=== PATIENT | female | born 1955 | race Caucasian/White ===

== ENCOUNTER 2019-02-10 13:22 | Emergency (ER) | payer SELFPAY ==
[2019-02-10] MEDS ORDERED: BABY ASPIRIN 81 MG CHEW PO ONE (13:31)
--- NOTE | 2019-02-10 13:31 | ERPHSYRPT ---
- History of Present Illness Time Seen by Provider: 02/10/19 13:30 Historian: patient, family Exam Limitations: no limitations Physician History: 63 y/o white female presents with 3 to 4 days of intermittent substernal cp. described as transverse pressure with radiation to left arm a few times. pt took one baby asa this am. she has no known cardiac problems. pt has no cp at this time. pt denies n/v/d. denies abd pain, denies soa. Timing/Duration: day(s) ( 3 to 4 days) Quality: pressure Location: substernal Chest Pain Radiation: arm (left) Severity of Pain-Max: mild Severity of Pain-Current: none Modifying Factors: Improves With: nothing Associated Symptoms: denies symptoms Prior Chest Pain/Cardiac Workup: no prior chest pain, no prior cardiac workup Aspirin Treatment Today: 81 mg x 1 Allergies/Adverse Reactions: No Known Drug Allergies Allergy (Unverified 02/10/19 13:55) Home Medications: No Reportable Medications [No Reported Medications] 02/10/19 [History] - Review of Systems Constitutional: No Symptoms Eyes: No Symptoms Ears, Nose, & Throat: No Symptoms Respiratory: No Symptoms Cardiac: Chest Pain Abdominal/Gastrointestinal: No Symptoms Genitourinary Symptoms: No Symptoms Musculoskeletal: No Symptoms Skin: No Symptoms Neurological: No Symptoms Psychological: No Symptoms Endocrine: No Symptoms Hematologic/Lymphatic: No Symptoms Immunological/Allergic: No Symptoms All Other Systems: Reviewed and Negative - Past Medical History Neurological History: No Pertinent History ENT History: No Pertinent History Cardiac History: No Pertinent History Respiratory History: No Pertinent History Endocrine Medical History: No Pertinent History Musculoskeletal History: No Pertinent History GI Medical History: No Pertinent History History: No Pertinent History Psycho-Social History: No Pertinent History Female Reproductive Disorders: No Pertinent History - Past Surgical History Neuro Surgical History: No Pertinent History Cardiac: No Pertinent History Respiratory: No Pertinent History Gastrointestinal: No Pertinent History Genitourinary: No Pertinent History Musculoskeletal: No Pertinent History Female Surgical History: No Pertinent History - Nursing Vital Signs Nursing Vital Signs: Initial Vital Signs Temperature 97.7 F 02/10/19 13:23 Pulse Rate 70 02/10/19 13:23 Respiratory Rate 17 02/10/19 13:23 Blood Pressure 124/79 02/10/19 13:23 O2 Sat by Pulse Oximetry 96 02/10/19 13:23 Pain Scale Pain Intensity 0 - Physical Exam General Appearance: no apparent distress, alert, anxiety Eye Exam: PERRL/EOMI Ears, Nose, Throat Exam: normal ENT inspection, moist mucous membranes Neck Exam: normal inspection, non-tender, supple, full range of motion Respiratory Exam: normal breath sounds, lungs clear, airway intact, No chest tenderness (none now), No respiratory distress Cardiovascular Exam: regular rate/rhythm, normal heart sounds, normal peripheral pulses Gastrointestinal/Abdomen Exam: soft, normal bowel sounds, No tenderness Pelvic Exam: not done Back Exam: normal inspection, normal range of motion, No CVA tenderness, No vertebral tenderness Extremity Exam: normal inspection, normal range of motion, pelvis stable Neurologic Exam: alert, oriented x 3, cooperative, professor sculpture II-XII nml as tested Skin Exam: normal color, warm, dry Lymphatic Exam: No adenopathy SpO2 Interpretation: normal O2 Delivery: Room Air - Course Nursing assessment & vital signs reviewed: Yes EKG Interpreted by Me: RATE (65), Sinus Rhythm, NORMAL AXIS, Non-specific ST Changes, Other (no comparison ekg) Ordered Tests: Active Orders 24 hr Category Date Time Status Cook Fishing Vessel STAT Care 02/10/19 13:31 Active EKG-ER Only STAT Care 02/10/19 13:31 Active IV Insertion STAT Care 02/10/19 13:31 Active Pulse Oximetry (ED) STAT Care 02/10/19 13:31 Active CHEST 1 VIEW (PORTABLE) Stat Exams 02/10/19 13:31 Completed CHEST WITH CONTRAST [CT] Stat Exams 02/10/19 14:41 Completed CBC W DIFF Stat Lab 02/10/19 13:31 Completed CMP Stat Lab 02/10/19 13:55 Completed D-DIMER QUANTITATION Stat Lab 02/10/19 13:55 Completed NT PRO BNP Stat Lab 02/10/19 13:55 Completed PROTIME WITH INR Stat Lab 02/10/19 13:55 Completed TROPONIN Q3H Lab 02/10/19 13:55 Completed TROPONIN Q3H Lab 02/10/19 16:45 Ordered TROPONIN Q3H Lab 02/10/19 19:45 Ordered TROPONIN Q3H Lab 02/10/19 22:45 Ordered TROPONIN Q3H Lab 02/11/19 01:45 Ordered Medication Summary Discontinued Medications Generic Name Dose Route Start Last Admin Trade Name Freq PRN Reason Stop Dose Admin Aspirin 324 mg 02/10/19 13:31 02/10/19 14:18 Baby Aspirin 81 Mg Chew PO 02/10/19 13:32 324 mg STAT ONE Administration Lab/Rad Data: Laboratory Result Diagrams 02/10/19 13:31 02/10/19 13:55 Laboratory Results 02/10/19 02/10/19 02/10/19 Range/Units 13:55 13:55 13:55 WBC (4.0-10.5) K/mm3 RBC (4.1-5.4) M/mm3 Hgb (12.0-16.0) gm/dl Hct (35-47) % MCV (78-100) fl MCH (26-32) pg MCHC (32-36) g/dl RDW (11.5-14.0) % Plt Count (150-450) K/mm3 MPV (6-9.5) fl Gran % (36.0-66.0) % Eos # (Auto) (0-0.5) Absolute Lymphs (auto) (1.0-4.6) Absolute Monos (auto) (0.0-1.3) Lymphocytes % (24.0-44.0) % Monocytes % (0.0-12.0) % Eosinophils % (0.00-5.0) % Basophils % (0.0-0.4) % Absolute Granulocytes (1.4-6.9) Basophils # (0-0.4) PT 12.0 (9.95-12.35) SECONDS INR 1.03 (0.8-3.0) D-Dimer 822 H* (215-500) ng/mL Sodium 141 (137-145) mmol/L Potassium 3.7 (3.5-5.1) mmol/L Chloride 109 H (98-107) mmol/L Carbon Dioxide 28 (22-30) mmol/L Anion Gap 8.4 (5-15) MEQ/L BUN 12 (7-17) mg/dL Creatinine 0.77 (0.52-1.04) mg/dL Estimated GFR > 60.0 ML/MIN Glucose 90 (74-106) mg/dL Calcium 8.9 (8.4-10.2) mg/dL Total Bilirubin 0.70 (0.2-1.3) mg/dL AST 43 H (14-36) U/L ALT 64 H (0-35) U/L Alkaline Phosphatase 68 (38-126) U/L Troponin I 2.680 H* (0.000-0.034) ng/mL NT-Pro-B Natriuret Pep 66114 H (0-900) pg/mL Serum Total Protein 6.4 (6.3-8.2) g/dL Albumin 3.6 (3.5-5.0) g/dL 02/10/19 Range/Units 13:31 WBC 5.3 (4.0-10.5) K/mm3 RBC 3.80 L (4.1-5.4) M/mm3 Hgb 11.4 L (12.0-16.0) gm/dl Hct 36.0 (35-47) % MCV 94.7 (78-100) fl MCH 30.0 (26-32) pg MCHC 31.7 L (32-36) g/dl RDW 13.5 (11.5-14.0) % Plt Count 243 (150-450) K/mm3 MPV 10.4 H (6-9.5) fl Gran % 76.9 H (36.0-66.0) % Eos # (Auto) 0.04 (0-0.5) Absolute Lymphs (auto) 0.86 L (1.0-4.6) Absolute Monos (auto) 0.32 (0.0-1.3) Lymphocytes % 16.1 L (24.0-44.0) % Monocytes % 6.0 (0.0-12.0) % Eosinophils % 0.8 (0.00-5.0) % Basophils % 0.2 (0.0-0.4) % Absolute Granulocytes 4.10 (1.4-6.9) Basophils # 0.01 (0-0.4) PT (9.95-12.35) SECONDS INR (0.8-3.0) D-Dimer (215-500) ng/mL Sodium (137-145) mmol/L Potassium (3.5-5.1) mmol/L Chloride (98-107) mmol/L Carbon Dioxide (22-30) mmol/L Anion Gap (5-15) MEQ/L BUN (7-17) mg/dL Creatinine (0.52-1.04) mg/dL Estimated GFR ML/MIN Glucose (74-106) mg/dL Calcium (8.4-10.2) mg/dL Total Bilirubin (0.2-1.3) mg/dL AST (14-36) U/L ALT (0-35) U/L Alkaline Phosphatase (38-126) U/L Troponin I (0.000-0.034) ng/mL NT-Pro-B Natriuret Pep (0-900) pg/mL Serum Total Protein (6.3-8.2) g/dL Albumin (3.5-5.0) g/dL - Progress Progress: re-examined, unchanged Air Movement: good Progress Note: 02/10/19 15:04 spoke with fabienne at [facility] i reviewed pt hx, condition, labs, ekg and xray results. she is reviewing the info with physician. they will call us back. pts states pt prefers [facility]. will cancel [facility] transfer and contact transfer center at [place] 02/10/19 16:09 cta chest-no pulmonary emboli; mild bilat pleural effusions and cardiomegaly 02/10/19 16:56 dr. jimenez account support analyst at [facility] accepts pt in transfer. no recommendations Blood Culture(s) Obtained: No Antibiotics given: No Counseled pt/family regarding: lab results, diagnosis, need for follow-up, rad results - Departure Time of Disposition: 15:10 Departure Disposition: Transfer Clinical Impression: Chest pain Condition: Stable Critical Care Time: Yes Critical Care Time(excluding separately billable procedures): 30-74 minutes Referrals: DOCTOR,NO FAMILY [Primary Care Provider] -
[2019-02-10 14:01] LABS: BASOPHIL % 0.2 % (0.0-0.4); Basophil (Absolute #) 0.01 (0-0.4); Eosinophil % 0.8 % (0.00-5.0); Eosinophil (Absolute #) 0.04 (0-0.5); Granulocytes % 76.9 % (36.0-66.0); Hemoglobin 11.4 gm/dl (12.0-16.0); Lymphocyte (Absolute #) 0.86 (1.0-4.6); Lymphocytes % 16.1 % (24.0-44.0); Mean Cell Volume 94.7 fl (78-100); Mean Corpuscular Hgb Concent. 31.7 g/dl (32-36); Mean Platelet Volume 10.4 fl (6-9.5); Monocyte (Absolute #) 0.32 (0.0-1.3); Platelet Count 243 K/mm3 (150-450); Red Cell Distribution Width 13.5 % (11.5-14.0); White Blood Count 5.3 K/mm3 (4.0-10.5)
--- NOTE | 2019-02-10 14:02 | XRAY ---
Indication: Chest pain and short of breath. Comparison: None Portable chest is clear. Heart and mediastinal structures within normal limits. Bony thorax intact. Impression: Nonacute chest.
[2019-02-10 14:09] LABS: INR 1.03 (0.8-3.0)
[2019-02-10 14:22] LABS: ALBUMIN 3.6 g/dL (3.5-5.0); ALKALINE PHOSPHATASE 68 U/L (38-126); ANION GAP 8.4 MEQ/L (5-15); BLOOD UREA NITROGEN 12 mg/dL (7-17); CHLORIDE 109 mmol/L (98-107); Calcium 8.9 mg/dL (8.4-10.2); Carbon Dioxide 28 mmol/L (22-30); Creatinine 1 0.77 mg/dL (0.52-1.04); Glucose 90 mg/dL (74-106); NT PRO BNP 12200 pg/mL (0-900); Potassium 3.7 mmol/L (3.5-5.1); SGOT/AST 43 U/L (14-36); SGPT/ALT 64 U/L (0-35); SODIUM 141 mmol/L (137-145); Total Protein 6.4 g/dL (6.3-8.2)
--- NOTE | 2019-02-10 16:12 | XRAY ---
Indication: Chest pain and short of breath. Elevated d-dimer. Multiple contiguous axial images obtained through the chest using 100 cc Isovue 300 contrast and PE protocol. Comparison: None There is good opacification of the pulmonary arteries to include the lobar and segmental branches. No filling defect or pulmonary embolus. Heart is not enlarged. Aorta is normal in course and caliber. Tiny subcarinal and left hilar calcified nodes. No pathologic mediastinal/hilar lymphadenopathy. Small hiatal hernia. Examination of the lung parenchyma demonstrates tiny bilateral pleural effusions and minimal bilateral dependent atelectasis. No suspicious pulmonary mass, infiltrate, or consolidation. Bony thorax intact with mild degenerative changes throughout the spine. Limited upper abdomen demonstrates mild fatty liver. Impression: 1. Negative pulmonary embolus. 2. Tiny nonspecific bilateral effusions without cardiomegaly. 3. Incidental small hiatal hernia, fatty liver, and evidence for old granulomatous disease. CTDI 12.51
[2019-02-10 17:53] VITALS: BP 132/85; PULSE 95; O2SAT 98
== END 2019-02-10 17:56 | disposition short-term general hospital (02) ==
LOC: ED 13:22
DX: R07.89 Other chest pain (principal)
CPT/HCPCS: 36000; 36415; 71045; 71260; 80053; 83880; 84484; 85025; 85379; 85610; 93005; 93041; 99285; A9270-GY

== ENCOUNTER 2020-04-30 17:52 | Emergency (ER) | payer MEDICARE ==
--- NOTE | 2020-04-30 18:12 | ERPHSYRPT ---
- History of Present Illness Hx Tetanus, Diphtheria Vaccination/Date Given: No Hx Influenza Vaccination/Date Given: No Hx Pneumococcal Vaccination/Date Given: No <AVIVA ORTIZ - Last Filed: 04/30/20 18:12> - History of Present Illness Source: patient, family Exam Limitations: no limitations Occurred: yesterday Method of Injury: fell Quality: constant Severity of Pain-Max: moderate Severity of Pain-Current: moderate Extremities Pain Location: shoulder: left, arm: left, elbow: left Modifying Factors: Improves With: immobilization, movement Associated Symptoms: none <RITU SOLO - Last Filed: 04/30/20 21:21> - History of Present Illness Time Seen by Provider: 04/30/20 18:12 Physician History: pt is 64 yr old female who fell from pool ladder to ground yesterday and left arm is still painful and right great toe and tailbone- neurovasc and tendon fxn intact. full rom all ext chest and abd nontedner - no prodrome just slipped on ladder - minor trauma to head without LOC or tenderness or neuro deficits or headache at this time - discussed that pt is on blood thinners and risk/benefit of CT and pt wishes to decline at this time which is reasonable given timing and presentation aqt this time and she has the capacity to make this choice. remainder spine nontender - coccyx tender only. (RITU SOLO) Allergies/Adverse Reactions: No Known Drug Allergies Allergy (Verified 04/30/20 18:13) Home Medications: Atorvastatin Calcium [Lipitor] 80 mg PO DAILY 04/30/20 [History] Clopidogrel Bisulfate [Clopidogrel] 75 mg PO DAILY 04/30/20 [History] Isosorbide Mononitrate 30 mg [Imdur 30 MG] 30 mg PO DAILY 04/30/20 [History ] - Review of Systems Constitutional: No Fever, No Chills Eyes: No Symptoms Ears, Nose, & Throat: No Symptoms Respiratory: No Cough, No Dyspnea Cardiac: No Chest Pain, No Edema, No Syncope Abdominal/Gastrointestinal: No Abdominal Pain, No Nausea, No Vomiting, No Diarrhea Genitourinary Symptoms: No Dysuria Musculoskeletal: No Back Pain, No Neck Pain Skin: No Rash Neurological: No Dizziness, No Focal Weakness, No Sensory Changes Psychological: No Symptoms Endocrine: No Symptoms All Other Systems: Reviewed and Negative <RITU SOLO - Last Filed: 04/30/20 21:21> - Past Medical History Pertinent Past Medical History: Yes Neurological History: No Pertinent History ENT History: No Pertinent History Cardiac History: No Pertinent History Respiratory History: No Pertinent History Endocrine Medical History: No Pertinent History Musculoskeletal History: No Pertinent History GI Medical History: No Pertinent History History: No Pertinent History Psycho-Social History: No Pertinent History Female Reproductive Disorders: No Pertinent History - Past Surgical History Past Surgical History: Yes Neuro Surgical History: No Pertinent History Cardiac: No Pertinent History Respiratory: No Pertinent History Gastrointestinal: No Pertinent History Genitourinary: No Pertinent History Musculoskeletal: No Pertinent History Female Surgical History: No Pertinent History - Social History Smoking Status: Never smoker Exposure to second hand smoke: No Drug Use: none Patient Lives Alone: No <AVIVA ORTIZ - Last Filed: 04/30/20 18:12> - Physical Exam General Appearance: no apparent distress, alert Eyes, Ears, Nose, Throat Exam: moist mucous membranes Neck Exam: non-tender, supple, full range of motion Cardiovascular/Respiratory Exam: chest non-tender, normal breath sounds, regular rate/rhythm, no respiratory distress Abdominal Exam: non-tender, No guarding Back Exam: normal inspection, No vertebral tenderness Shoulder Exam: bone tenderness (left) Elbow/Forearm Exam: soft tissue tenderness Wrist Exam: normal inspection, non-tender, no evidence of injury, normal ROM Hand Exam: normal inspection, non-tender, no evidence of injury, normal ROM DTR - Upper Extremity Exam: bicep (R): 2+, bicep (L): 2+, tricep (R): 2+, tricep (L): 2+ Neuro/Tendon Exam: normal sensation, normal motor functions Mental Status Exam: alert, oriented x 3, cooperative Skin Exam: normal color, warm, dry SpO2 Interpretation: normal O2 Delivery: Room Air <RITU SOLO - Last Filed: 04/30/20 21:21> - Nursing Vital Signs Nursing Vital Signs: Initial Vital Signs Temperature 98.0 F 04/30/20 18:08 Pulse Rate 64 04/30/20 18:08 Respiratory Rate 20 04/30/20 18:08 Blood Pressure 138/74 04/30/20 18:08 O2 Sat by Pulse Oximetry 97 04/30/20 18:08 Pain Scale Pain Intensity 8 - Course Nursing assessment & vital signs reviewed: Yes - Radiology Exams Left Shoulder X-ray Interpretation: Reviewed by me, Other (no obvious fracture- left lung nodule) Left Humerus X-ray Interpretation: Reviewed by me, Other (no obvious fracture) Right Foot X-ray Interpretation: Reviewed by me, Non-displaced Fracture (possible right toe fracture) Pelvis X-ray Interpretation: Non-displaced Fracture (possible nondisplaced coccyx fx) <RITU SOLO - Last Filed: 04/30/20 21:21> Ordered Tests: Active Orders 24 hr Category Date Time Status ELBOW (MINIMUM 3 VIEWS) Stat Exams 04/30/20 18:27 Completed FOOT (MINIMUM 3 VIEWS) Stat Exams 04/30/20 19:17 Completed FOREARM Stat Exams 04/30/20 20:43 Ordered HUMERUS Stat Exams 04/30/20 18:27 Completed PELVIS (1 OR 2 VIEWS) Stat Exams 04/30/20 19:18 Completed <AVIVA ORTIZ - Last Filed: 04/30/20 18:12> - Progress Progress: improved, re-examined Counseled pt/family regarding: diagnosis, need for follow-up, rad results <RITU SOLO - Last Filed: 04/30/20 21:21> - Progress Progress Note: 04/30/20 21:14 dr kathleen read the xrays and reports no fractures including the elbow which his interpretation is artifact , but clinically will place in sling and also read pelvis and foot/toe as negative - (RITU SOLO) <AVIVA ORTIZ - Last Filed: 04/30/20 18:12> - Departure Departure Disposition: Home Critical Care Time: No <RITU SOLO - Last Filed: 04/30/20 21:21> - Departure Clinical Impression: Nodule of left lung, nondisplaced coccyx fracture, left elbow and shoulder ligament injurie Condition: Good Referrals: DOCTOR,NO FAMILY [Primary Care Provider] - Instructions: Shoulder Sprain, Muscle Strain, Contusion (DC), Coccyx Fracture ( DC) Additional Instructions: followup with your dr for left lung nodule. and for shoulder and elbow which still may have ligament injuries and there may be nondisplaced coccyx and right toe fractures. use tailbone cushion.
[2020-04-30 19:07] VITALS: PULSE 57
[2020-04-30 20:56] VITALS: O2SAT 97
--- NOTE | 2020-04-30 21:01 | XRAY ---
Indication: Pain following fall. Comparison: None 3 view left elbow demonstrates tiny lateral epicondyle spur. No other bony, articular, or soft tissue abnormalities.
--- NOTE | 2020-04-30 21:03 | XRAY ---
Indication: Pain following fall. 2 view left humerus demonstrates mild AC degenerative arthropathy, tiny lateral epicondyle spur, and tiny left lung base calcified granuloma. No other bony, articular, or soft tissue abnormalities.
--- NOTE | 2020-04-30 21:05 | XRAY ---
Indication: Pain following fall. Comparison: None 3 nonweightbearing view right foot obtained. No bony, articular, or soft tissue abnormalities.
--- NOTE | 2020-04-30 21:05 | XRAY ---
Indication: Pain following fall. Comparison: None Single AP pelvis demonstrates mild lumbosacral junction degenerative facet hypertrophy and 2 cm calcified uterine fibroid. No other bony, articular, or soft tissue abnormalities.
[2020-04-30 21:11] VITALS: BP 155/73
== END 2020-04-30 21:30 | disposition home or self-care (01) ==
LOC: ED 17:52
DX: R91.1 Solitary pulmonary nodule (principal); S32.2XXA Fracture of coccyx, initial encounter for closed fracture; W17.89XA Other fall from one level to another, initial encounter; Y93.89 Activity, other specified; Y92.89 Other specified places as the place of occurrence of the external cause; S59.902A Unspecified injury of left elbow, initial encounter; S49.92XA Unspecified injury of left shoulder and upper arm, initial encounter; Z79.899 Other long term (current) drug therapy
CPT/HCPCS: 72170; 73060; 73080; 73630; 99283